=== PATIENT | male | born 1980 | race Caucasian/White ===

== ENCOUNTER 2016-07-31 14:25 | Emergency (ER) | payer BC ==
[2015-02-19 14:02] VITALS: BMI 20.2
[~2016-07-31 14:25] MED LIST: PERCOCET 10/3251 TA1 PO
[2016-07-31 16:15] LABS: BASOPHILS 0.3 % (0.0-2.0); HEMATOCRIT 48.5 % (42.0-54.0); HEMOGLOBIN 16.8 g/dL (13.5-17.5); IMMATURE GRANULOCYTES 0.1 % (0-5); LYMPHOCYTES 23.2 % (15-50); MCHC 34.6 g/dL (31.0-37.0); MCV 95.3 fL (80.0-100.0); MEAN PLATELET VOLUME 10.6 fL (7.4-10.4); MONOCYTES 11.1 % (2-11); NEUTROPHILS 63.3 % (40-80); PLATELET COUNT 212 10x3/uL (130-400); RBC 5.09 10x6/uL (4.20-6.10); RDW 12.5 % (11.5-14.5); WBC 10.7 10x3/uL (4.8-10.8)
[2016-07-31 16:25] LABS: APTT 25.8 SECONDS (22.8-39.4); INR 0.89 (0.85-1.17); PROTIME 11.9 SECONDS (11.6-15.0)
[2016-07-31 16:56] LABS: ALBUMIN 3.9 g/dL (3.4-5.0); ALKALINE PHOSPHATASE 86 U/L (46-116); ALT (SGPT) 28 U/L (10-68); CALC OSMOLALITY 279 mosm/kg (275-300); CALCIUM 9.4 mg/dL (8.5-10.1); CARBON DIOXIDE 29.4 mmol/L (21.0-32.0); CHLORIDE - SERUM 101 mmol/L (98-107); GLUCOSE 106 mg/dL (74-106); POTASSIUM - SERUM 4.8 mmol/L (3.5-5.1); PROTEIN - SERUM 7.6 g/dL (6.4-8.2); SODIUM 139 mmol/L (136-145); UREA NITROGEN 17 mg/dL (7-18); eGFR NON AFRICAN AMERICAN 90 mL/min (90-120)
== END 2016-07-31 17:19 | disposition home or self-care (01) ==
LOC: D.ER 14:25
PROVIDERS: Emergency Medicine
DX: I82.402 Acute embolism and thrombosis of unspecified deep veins of left lower extremity (principal); F17.200 Nicotine dependence, unspecified, uncomplicated

== ENCOUNTER 2016-11-13 15:13 | Inpatient (IN) | payer BC ==
[~2016-11-13] VITALS: Ht 180.3 cm; Wt 69.0 kg
[2016-11-13 15:39] LABS: BASOPHILS 0.4 % (0-2); EOSINOPHILS 3.4 % (0-7); HEMATOCRIT 42.5 % (42.0-54.0); HEMOGLOBIN 14.8 g/dL (13.5-17.5); IMMATURE GRANULOCYTES 0.1 % (0-5); LYMPHOCYTES 48.8 % (15-50); MCH 33.3 pg (26.0-34.0); MCHC 34.8 g/dL (31.0-37.0); MCV 95.5 fL (80.0-100.0); MEAN PLATELET VOLUME 11.3 fL (7.4-10.4); MONOCYTES 12.1 % (2-11); NEUTROPHILS 35.2 % (40-80); RBC 4.45 10x6/uL (4.20-6.10); RDW 12.9 % (11.5-14.5); WBC 6.7 10x3/uL (4.8-10.8)
[2016-11-13 15:41] LABS: PLATELET COUNT 306 10x3/uL (130-400)
[2016-11-13 15:51] LABS: APTT 31.2 SECONDS (22.8-39.4); FIBRINOGEN 315 mg/dL (239-481); INR 0.95 (0.85-1.17); PROTIME 12.6 SECONDS (11.6-15.0)
[2016-11-13 15:52] LABS: D-DIMER-QUANTITATIVE < 0.27 ug/mLFEU (0.20-0.54)
[2016-11-13 16:31] LABS: ALBUMIN 3.7 g/dL (3.4-5.0); ALKALINE PHOSPHATASE 64 U/L (46-116); ALT (SGPT) 20 U/L (10-68); BILIRUBIN - TOTAL 0.27 mg/dL (0.2-1.3); CALC OSMOLALITY 284 mosm/kg (275-300); CALCIUM 8.6 mg/dL (8.5-10.1); CARBON DIOXIDE 24.6 mmol/L (21.0-32.0); CHLORIDE - SERUM 107 mmol/L (98-107); CREATINE KINASE 118 UL (21-232); CREATININE - SERUM 0.9 mg/dL (0.6-1.3); GLUCOSE 91 mg/dL (74-106); POTASSIUM - SERUM 3.6 mmol/L (3.5-5.1); PROTEIN - SERUM 6.8 g/dL (6.4-8.2); SODIUM 142 mmol/L (136-145); UREA NITROGEN 18 mg/dL (7-18); eGFR NON AFRICAN AMERICAN > 90 mL/min (90-120)
--- NOTE | 2016-11-13 18:50 | NUR ---
PT ARRIVED TO UNIT FROM RECOVERY. HOOKED UP TO ICU MONITORS. DENIES PAIN.
[2016-11-13 19:00] VITALS: BP 110/80
--- NOTE | 2016-11-13 19:15 | NUR ---
ADMISION ASSESSMNENT AND HISTORY COMPLETED. PT C/O PAIN 5 ON SCALE TO LEFT HAND. BUSINESS LIBRARIAN PUMP STARTED PER ORDER. INSTRUCTED PT HOW TO USE. VERBALIZE UNDERSTANDING. AT BEDSIDE. VSS. LEFT ARM ELEVATED ON PILLOWS. PT STATES THAT FEELS BETTER. WILL CONT TO MONITOR.
[2016-11-13 20:00] VITALS: BP 144/87
[2016-11-13 20:08] VITALS: BP 110/80; Ht 180.3 cm; Wt 69.0 kg
[2016-11-13 21:00] VITALS: BP 132/91
--- NOTE | 2016-11-13 21:00 | NUR ---
AT BEDSIDE. PT RESTING COMFORTABLY AT THIS TIME. VSS.
[2016-11-13 22:00] VITALS: BP 142/79
[2016-11-13 23:00] VITALS: BP 144/80
--- NOTE | 2016-11-13 23:00 | NUR ---
REASSESSMENT COMPLETED. SEE FLOW SHEETS FOR ALL FINDINGS. NO ACUTE SIGNS OF DISTRESS NOTED AT THIS TIME. VSS. PT USE CATALYTIC CONVERTER OPERATOR FOR PAIN. REPOSITIONED FOR COMFORT. CONT LEFT ARM ELEVATED. CALL LIGHT IN REACH. CPOC.
[2016-11-14] VITALS (23 sets, daily range): BP systolic 115–147; BP diastolic 61–85
[2016-11-14] MEDS ORDERED: XARELTO20 MG (00:02)
--- NOTE | 2016-11-14 01:00 | NUR ---
PT RESTING QUIETLY WITHOUT DISTRESS, VSS, NO NEEDS VOICES. CPOC.
--- NOTE | 2016-11-14 03:00 | NUR ---
REASSESSMENT COMPLETED. SEE FLOW SHEETS FOR ALL FINDINGS. LEFT HAND DRESSING INTACT, SMALL AMNT OF SROUSSANGUINOUS DRAINAGE NOTED. CONT ARM ELEVATED ON PILLOWS,. ASSISTED TO BS, PT VOIDS WITHOUT DIFFIC. UA COLLECTED . CALL LIGHT IN REACH, WILL CONT TO MONITOR.
[2016-11-14 04:05] LABS: APPEARANCE CLEAR (CLEAR); BILIRUBIN NEGATIVE (NEGATIVE); COLOR YELLOW (YELLOW); GLUCOSE NEGATIVE (NEGATIVE); KETONE NEGATIVE (NEGATIVE); LEUKOCYTE ESTERASE NEGATIVE (NEGATIVE); NITRITE NEGATIVE (NEGATIVE); PROTEIN NEGATIVE (NEGATIVE); UROBILINOGEN NORMAL (NORMAL)
[2016-11-14 04:38] LABS: HEMATOCRIT 40.5 % (42.0-54.0); HEMOGLOBIN 13.4 g/dL (13.5-17.5)
--- NOTE | 2016-11-14 07:00 | NUR ---
SHIFT ASSESSMENT COMPLETED, PT ALERT AND ORIENTED, RESPIRATIONS SHALLOW, ENCOURAGED DEEP BREATHING, PIV TO RIGHT AC AND RIGHT FOREARM PATENT, MUSIC MINISTER FOR PAIN, REVIEWED HOW TO USE WITH PT WHO STATES UNDERSTANDING, DRESSING TO LEFT FOREARM/HAND CDI, WARM TO TOUCH, GOOD CAPILLARY REFILL,DENIES PAIN AT THIS TIME, REPOSITIONED, CALL LIGHT WITHIN REACH NO NEEDS NOTED
--- NOTE | 2016-11-14 09:00 | NUR ---
NO CHANGES NOTED, PT CONTINUES TO BE ALERT, REPOSITIONS SELF WITH LITTLE ASSISTANCE, CALL LIGHT WITHIN REACH VSS WILL CONTINUE TO MONITOR
--- NOTE | 2016-11-14 11:00 | NUR ---
PT ALERT AND ORIENTED, REPOSITIONS SELF WITH ASSISTANCE NEEDED, LINEN CHANGE AND BED BATH PROVIDED, FLUIDS AND CALL LIGHT AND WAX CUTTER BUTTON WITHIN REACH VSS WILL CONTINUE TO MONITOR
--- NOTE | 2016-11-14 13:00 | NUR ---
PT ALERT AND ORIENTED, VSS, O2 2L NC, REPOSITIONS SELF, CALL LIGHT AND FLUIDS WITHIN REACH, WILL CONTINUE TO MONITOR
--- NOTE | 2016-11-14 15:00 | NUR ---
PT ALERT AND ORIENTED, DENIES PAIN AND ALL NEEDS, PULSES PALPABLE, DRESSING TO LEFT WRIST/HAND CDI, NO NEEDS NOTED, WILL CONTINUE TO MONITOR
[2016-11-14 15:07] LABS: CARBON DIOXIDE 24.3 mmol/L (21.0-32.0); CHLORIDE - SERUM 103 mmol/L (98-107); CREATININE - SERUM 0.7 mg/dL (0.6-1.3); GLUCOSE 104 mg/dL (74-106); SODIUM 137 mmol/L (136-145); eGFR NON AFRICAN AMERICAN > 90 mL/min (90-120)
[2016-11-14 15:10] LABS: CALC OSMOLALITY 272 mosm/kg (275-300); POTASSIUM - SERUM 5.5 mmol/L (3.5-5.1); UREA NITROGEN 10 mg/dL (7-18)
--- NOTE | 2016-11-14 17:15 | NUR ---
TOOK PATIENT HIS DINNER TRAY. DENIES OTHER NEEDS. CALL LIGHT IN REACH
--- NOTE | 2016-11-14 18:26 | NUR ---
FAMILY AT BEDSIDE. DENIES NEEDS.
--- NOTE | 2016-11-14 19:00 | NUR ---
AOX4. CONCRETE POINTER INFUSING, PT STATES UNDERSTANDING ON CONCRETE POINTER USE. STATES HE IS COMFORTABLE. RESPIRATIONS NON LABORED, LUNG SOUNDS CLEAR BILATERALLY. SPO2 96 ON ROOM AIR. S1S2 HEARD, PERIPHERAL PULSES PRESENT. BOWEL SOUNDS ACTIVE IN ALL QUADS. NO ABD TENDERNESS NOTED. LT ARM WITH WRAP/DSG CDI, THIRD FINGER WITH DISCOLORATION NOTED, GAUZE TO SITE FOR SCANT DRAINAGE. LT FINGERS WARM TO TOUCH WITH CAP REFILL PRESENT. PT REPOSITIONS SELF INDEPENDENTLY. DENIES NEEDS AT THIS TIME. CALL LIGHT AND BEDSIDE TABLE WITHIN PT REACH. CPOC.
--- NOTE | 2016-11-14 21:00 | NUR ---
FAMILY AT BEDSIDE. DENIES NEEDS.
[2016-11-15] VITALS (12 sets, daily range): BP systolic 99–156; BP diastolic 54–86
--- NOTE | 2016-11-15 01:00 | NUR ---
PT SLEEPING QUIETLY WITH VSS. NO S/S OF PAIN OR DISTRESS AT THIS TIME. PT ALLOWED TO CONTINUE SLEEPING UNDISTURBED AT THIS TIME. CALL LIGHT WITHIN PT REACH. ROOM VISIBLE FROM NURSES STATION. CPOC.
--- NOTE | 2016-11-15 03:00 | NUR ---
REASSESSMENT COMPLETE, SEE FLOWSHEET FOR ALL FINDINGS. NO ACUTE CHANGES NOTED AT THIS TIME. PT RESTING QUIETLY WITH NON LABORED RESPIRATIONS. VSS. LT HAND WARM TO TOUCH WITH CAP REFILL PRESENT. NO S/S OF DISTRESS AT THIS TIME. CALL LIGHT AND BEDSIDE TABLE WITHIN PT REACH. CPOC.
[2016-11-15 03:52] LABS: HEMATOCRIT 37.2 % (42.0-54.0); HEMOGLOBIN 12.4 g/dL (13.5-17.5)
--- NOTE | 2016-11-15 05:00 | NUR ---
PT SLEEPING QUIETLY WITH VSS, UNLABORED RESPIRATIONS. LT HAND WITH DSG CDI, FINGERS WARM TO TOUCH WIH CAP REFILL PRESENT. DENIES NEEDS AT THIS TIME. CALL LIGHT AND BEDSIDE TABLE WITHIN PT REACH. CPOC.
--- NOTE | 2016-11-15 06:26 | NUR ---
FAMILY AT BEDSIDE. DENIES NEEDS.
--- NOTE | 2016-11-15 07:00 | NUR ---
LEFT HAND FINGERS WARM TO TOUCH AND PATIENT IS ABLE TO MOVE THEM ON COMMAND. SEE AM ASSESSMENT. NO DISTRESS NOTED AT PRESENT.
--- NOTE | 2016-11-15 09:55 | NUR ---
AROUSES EASILY TO VERBAL STIMULI, NO NOTED DISTRESS AT PRESENT.
--- NOTE | 2016-11-15 12:06 | NUR ---
CALLING REPORT TO FLOOR NURSE
--- NOTE | 2016-11-15 12:10 | NUR ---
NO ANSWER FOR REPORT
--- NOTE | 2016-11-15 12:31 | NUR ---
REPORT CALLED TO FLOOR NURSE
--- NOTE | 2016-11-15 12:45 | NUR ---
RECEIVED TO FLOOR FROM ICU, ORIENTED TO ROOM, DENIES NEEDS, BED LOWEST POSITION, CALL LIGHT IN REACH, WILL CONTINUE TO MONITOR
--- NOTE | 2016-11-15 14:50 | NUR ---
OFF FLOOR FOR A WALK, DISCONNECTED FROM HVAC INSTALLER PUMP WHILE OFF FLOOR
--- NOTE | 2016-11-15 22:53 | NUR ---
ASSESSED AT THE BEGINNING OF THE SHIFT. PT IS ALERT AND ORIENTED, ABLE TO VERBALIZE NEEDS. FAMILY REMAINS AT THE BEDSIDE. HE HAS A PLANT TECHNICAL SPECIALIST FOR PAIN CONTROL AND IT IS WORKING WELL. THERE IS GOOD CAP REFILL TO HIS LEFT HAND AND IT CONTINUES TO HAVE EDEMA WHILE WRAPPED IN A SOFT CAST. HE IS ABLE TO GET UP TO THE BATHROOM TO VOID AND VOICED NO NEEDS AND NO DISTRESS IS NOTED. THE BED IS LOW, RAILS UP X'S 2 WITH THE CALL LIGHT AT HAND.
[2016-11-16] VITALS: BP 119/70
[2016-11-16 04:00] VITALS: BP 116/78
[2016-11-16 05:37] LABS: HEMATOCRIT 37.4 % (42.0-54.0); HEMOGLOBIN 12.5 g/dL (13.5-17.5); MCH 32.7 pg (26.0-34.0); MCHC 33.4 g/dL (31.0-37.0); MCV 97.9 fL (80.0-100.0); MEAN PLATELET VOLUME 10.8 fL (7.4-10.4); RBC 3.82 10x6/uL (4.20-6.10); RDW 12.4 % (11.5-14.5); WBC 5.3 10x3/uL (4.8-10.8)
[2016-11-16 05:52] LABS: APTT 31.3 SECONDS (22.8-39.4); INR 1.03 (0.85-1.17); PROTIME 13.4 SECONDS (11.6-15.0)
[2016-11-16 05:56] LABS: CALCIUM 8.1 mg/dL (8.5-10.1); CHLORIDE - SERUM 100 mmol/L (98-107); CREATININE - SERUM 0.6 mg/dL (0.6-1.3); GLUCOSE 104 mg/dL (74-106); SODIUM 136 mmol/L (136-145); eGFR NON AFRICAN AMERICAN > 90 mL/min (90-120)
[2016-11-16 05:58] LABS: CALC OSMOLALITY 269 mosm/kg (275-300); POTASSIUM - SERUM 3.5 mmol/L (3.5-5.1); UREA NITROGEN 7 mg/dL (7-18)
--- NOTE | 2016-11-16 07:20 | NUR ---
PATIENT RECEIVED ALERT IN HIGH [place] POSITION EATING BREAKFAST. TOLERATING WELL. FAMILY PRESENT. DENIES NEEDS. SIDE RAILS UP X2. BED IN LOW POSITION. CALL LIGHT IN REACH.
--- NOTE | 2016-11-16 08:12 | NUR ---
PATIENT SITTING UP ON SIDE OF BED EATING BREAKFAST. TOLERATING WELL. FAMILY PRESENT. SCHEDULED MEDICATION ADMINISTERED. SIDE RAILS UP X2. BED IN LO WPOSITION. CALL LIGHT IN REACH.
[2016-11-16 08:59] VITALS: BP 146/83
--- NOTE | 2016-11-16 09:30 | NUR ---
PATIENT UP AMBULATING IN HALLWAY WITH FAMILY. NO SIGNS OF DISTRESS NOTED. WILL CONTINUE TO MONITOR.
[2016-11-16 11:30] VITALS: BP 95/59
--- NOTE | 2016-11-16 11:30 | NUR ---
PATIENT SITTING UP IN CHAIR RESTING WITH EYES CLOSED. RESPIRATIONS EVEN AND UNLABORED. STATES PATIENT C/O PAIN TO HIP. PANAMA HAT SMEARER BUTTON IN REACH. DENIES NEEDS. CALL LIGHT IN REACH.
[2016-11-16] MEDS ORDERED: PERCOCET 10/3251 TA1 PO (12:58)
[2016-11-16] MEDS ORDERED: BACTRIM DS TABL1 TAB PO (12:58)
--- NOTE | 2016-11-16 13:30 | NUR ---
IV X2 D/C FROM RIGHT ARM BOTH WITH CATH TIP INTACT. BOTH SITES COVERED WITH GAUZE AND BANDAID. D/C TEACHING AND PRESCRIPTIONS PROVIDED. STATES UNDERSTANDING. QUESTIONS ANSWERED. D/C HOME WITH . TRANSFERRED DOWNSTAIRS VIA WHEELCHAIR WITH STAFF.
== END 2016-11-16 13:49 | disposition home or self-care (01) | DRG 906 ==
LOC: D.ER 15:13 → D.ICU 17:00 → D.MS 11-15 12:45
PROVIDERS: Emergency Medicine; Nurse Practitioner Acute Care; ADMIT Orthopaedic Surgery
PROC: 0KND0ZZ Release Left Hand Muscle, Open Approach (ICD-10-PCS; principal; 2016-11-13 17:32)
DX: T79.A12A Traumatic compartment syndrome of left upper extremity, initial encounter (principal); T63.001A Toxic effect of unspecified snake venom, accidental (unintentional), initial encounter; Z86.718 Personal history of other venous thrombosis and embolism; Z79.01 Long term (current) use of anticoagulants; F17.200 Nicotine dependence, unspecified, uncomplicated

== ENCOUNTER 2017-02-20 07:00 | Day surgery (SDC) | payer BC ==
[2017-02-19 11:47] VITALS: BP 110/64; BMI 21.6
[~2017-02-20 07:00] MED LIST changes: +BACTRIM DS TABL1 TAB PO; +XARELTO20 MG
[2017-02-20 07:32] VITALS: BP 107/76; BMI 21.6
[2017-02-20] MEDS ORDERED: HYDROCODONE-APA1 TAB PO (09:15)
--- NOTE | 2017-02-20 10:55 | NUR ---
PT C/O PAIN TO INCISION SITE LEVEL 6. OVERIDE ORDER NORCO 10/325MG DONE BY EKTA RAMIREZ RN. NORCO PO GIVEN.
--- NOTE | 2017-02-20 11:15 | NUR ---
PT LYING BACK STATES PAIN IS LESS NOW RATES 4.
--- NOTE | 2017-02-20 11:45 | NUR ---
DC TEACHING COMPLETE TO PT AND PT VU PIV REMOVED W/CATHETER TIP INTACT. PRESCRIPT GIVEN TO .
--- NOTE | 2017-02-20 11:50 | NUR ---
PT OUT TO CAR VIA WC W/ DRIVING
--- NOTE | 2017-02-22 13:51 | OP ---
PATIENT NAME: KYLEIGH PEREZ MEDICAL RECORD: [id number] :78 LOCATION:D.OPS ADMISSION DATE: SURGEON: RADHA GONZALES MD DATE OF OPERATION: 02/20/2017 PREOPERATIVE DIAGNOSIS: Retained foreign body of the right wrist - glass. POSTOPERATIVE DIAGNOSIS: Retained foreign body of the right wrist - glass. PROCEDURE: Removal of foreign body of the right wrist. SURGEON: Radha Gonzales MD ANESTHESIA: General. INTRAOPERATIVE COMPLICATIONS: Essentially none. Two very small pieces were left as it did not appear to be in any vital pathway; however, the largest piece which was sent for pathology was removed. It was juxtaposed to and somewhat into the ulnar nerve. OPERATIVE SUMMARY IN DETAIL: After obtaining the appropriate preoperative orthopedic surgery consent as well as anesthetic consultation, evaluation, and clearance, the patient was brought to the operating room and placed on the operating table in the supine position. After adequate general laryngeal mask airway was administered, tourniquet was placed about the proximal aspect of the right upper extremity. Right upper extremity was then prepped and draped in routine sterile fashion. The arm was elevated and exsanguinated, tourniquet inflated to 350 mmHg. Very gentle incision was taken down to the apex of the glass on the ulnar aspect of the volar portion of the arm. Care was taken to very gently free the entire piece of glass from the neurovascular structures. It was pulled out in its entirety using fluoroscopic guidance. Having completed this and noting that there were 2 other small pieces, deep brief attempts were made to try and find them; however, they were so small they were not visually identified. These were left in situ. Wounds were copiously irrigated and closed with 2-0 Vicryl followed by 4-0 Prolene in running fashion. Sterile dressings were applied. Please note that prior to applying sterile dressings, the tourniquet was deflated. No overt arterial bleeding was encountered and the ulnar artery was still intact. Sterile dressings were applied. The patient was awakened, taken to the recovery room in stable condition. All final needle and sponge counts were correct. TRANSINT:[id number] Voice Confirmation ID: [id number] DOCUMENT ID: [id number] RADHA GONZALES MD at 1351 CC: [id number] DICTATION DATE: 02/20/17 1023 PELLET MACHINE OPERATOR: 02/20/[address] [facility] 02/20/17 [id number] [place] [address]
== END 2017-02-20 11:50 | disposition home or self-care (01) ==
LOC: D.OPS 07:00
DX: Z18.81 Retained glass fragments (principal); F17.200 Nicotine dependence, unspecified, uncomplicated; Z01.812 Encounter for preprocedural laboratory examination

== ENCOUNTER 2017-05-23 07:46 | Emergency (ER) | payer BC ==
[~2017-05-23 07:46] MED LIST changes: +HYDROCODONE-APA1 TAB PO
== END 2017-05-23 09:02 | disposition home or self-care (01) ==
LOC: D.ER 07:46
DX: S46.911A Strain of unspecified muscle, fascia and tendon at shoulder and upper arm level, right arm, initial encounter (principal); V86.59XA Driver of other special all-terrain or other off-road motor vehicle injured in nontraffic accident, initial encounter; Y93.89 Activity, other specified; Y92.89 Other specified places as the place of occurrence of the external cause; R07.89 Other chest pain; F17.200 Nicotine dependence, unspecified, uncomplicated

== ENCOUNTER → 2017-06-10 10:36 | Outpatient (CLI) | payer BC | END | disposition home or self-care (01) | LOC: D.CT 10:36 | DX: R07.89 Other chest pain (principal) ==